=== PATIENT | male | born 1950 | race Caucasian/White ===

== ENCOUNTER 2021-01-10 08:01 | Day surgery (SDC) | payer BC ==
[2021-01-07 13:58] LABS: BASOPHILS % (AUTO) 1 % (0-1); EOSINOPHILS % (AUTO) 7 % (1-7); LYMPHOCYTES % (AUTO) 34 % (22-44); MEAN CORPUSCULAR HEMOGLOBIN 28.1 pg (27.5-34.5); MEAN PLATELET VOLUME 7.7 fL (7.4-10.4); MONOCYTES % (AUTO) 10 % (2-9); NEUTROPHILS % (AUTO) 49 % (42-75); PLATELET COUNT 262 x10^3/uL (130-400); RED BLOOD COUNT 5.41 x10^6/uL (4.38-5.82); RED CELL DISTRIBUTION WIDTH 15.6 % (9.4-14.8)
[2021-01-07 13:59] LABS: MD NO
[2021-01-07 14:05] LABS: INTERNATIONAL NORMALIZED RATIO 0.96 (0.93-1.1); PROTHROMBIN TIME 10.3 Seconds (9.6-11.5)
[2021-01-07 14:06] LABS: ALBUMIN 3.7 g/dL (3.4-5.0); ANION GAP 4 mmol/L (5-15); CHLORIDE 111 mmol/L (98-107)
[2021-01-07 14:10] LABS: ALANINE AMINOTRANSFERASE 42 U/L (12-78); ALKALINE PHOSPHATASE 86 U/L (45-117); BILIRUBIN,TOTAL 0.5 mg/dL (0.2-1.0); CREATININE 0.93 mg/dL (0.7-1.3); TOTAL PROTEIN 7.8 g/dL (6.4-8.2)
[~2021-01-10] VITALS: Ht 190.5 cm; Wt 129.2 kg
[2021-01-10] MEDS ORDERED: CHLORHEXIDINE 15 ML UDC ONE (08:25)
[2021-01-10] MEDS ORDERED: LACTATED RINGERS 1,000 ML IV SCH (08:30)
[2021-01-10] MEDS ORDERED: CHLORHEXIDINE 15 ML UDC PO ONE (08:30)
[2021-01-10 09:03] VITALS: BP 122/89
[2021-01-10] MEDS ORDERED: EPINEPHRINE 1 MG/ML, 1ML ONE (11:22)
[2021-01-10] MEDS ORDERED: BUPIVACAINE/PF 0.5% ONE (11:22)
[2021-01-10] MEDS ORDERED: FENTANYL PF 100 MCG/2ML ONE (11:36)
[2021-01-10] MEDS ORDERED: MIDAZOLAM 1 MG/ML, 2ML ONE (11:37)
[2021-01-10] MEDS ORDERED: MINERAL OIL 10 ML VIAL MC ONE (11:45)
[2021-01-10] MEDS ORDERED: EPHEDRINE 50 MG/ML, 1ML ONE (11:50)
[2021-01-10] MEDS ORDERED: PHENYLEPHRINE 10 MG/ML ONE (11:50)
[2021-01-10] MEDS ORDERED: DEXAMETHASONE 4 MG/ML, 1ML ONE (11:50)
[2021-01-10] MEDS ORDERED: PROPOFOL 10 MG/ML, 20ML ONE (13:41)
[2021-01-10] MEDS ORDERED: CEFAZOLIN 1,000 MG ONE (13:41)
[2021-01-10] MEDS ORDERED: ONDANSETRON 2MG/ML, 2ML ONE (13:41)
[2021-01-10] MEDS ORDERED: HYDR-2214 PO (13:43)
[2021-01-10] MEDS ORDERED: KETOROLAC 30 MG/1 ML IVPush SCH (14:00)
[2021-01-10] MEDS ORDERED: ONDANSETRON 2MG/ML, 2ML IVPush PRN (14:00)
[2021-01-10] MEDS ORDERED: PROMETHAZINE 25 MG/ML, 1ML IVPush PRN (14:00)
[2021-01-10] MEDS ORDERED: HYDROcodone/APAP 7.5-325MG/15ML UDC PO PRN (14:00)
[2021-01-10] MEDS ORDERED: FENTANYL PF 100 MCG/2ML IV PRN (14:00)
[2021-01-10] MEDS ORDERED: HYDROmorphone 1 MG/ML, 1ML INJ IVPush PRN (14:00)
[2021-01-10] MEDS ORDERED: OXYcodone 5 MG/5 ML ORAL.SOL UDC PO PRN (14:00)
== END 2021-01-10 15:30 | disposition home or self-care (01) ==
LOC: OUT 08:01
PROVIDERS: ATTEND Surgery
DX: C43.61 Malignant melanoma of right upper limb, including shoulder (principal); E66.9 Obesity, unspecified; Z20.822 Contact with and (suspected) exposure to COVID-19; Z98.890 Other specified postprocedural states; Z68.35 Body mass index [BMI] 35.0-35.9, adult; Z79.899 Other long term (current) drug therapy
CPT/HCPCS: 11602; 15100; 36415; 38525; 38792; 80053; 85025; 85610; 88305; 88307; 88341; 88342; 93005; A9541; C1760; J0171; J0690; J1100; J1885; J2250; J2370; J2405; J2704; J3010; J7120; U0003